=== PATIENT | female | born 1960 | race African-American/Black ===

== ENCOUNTER 2018-04-10 11:12 | Inpatient (IN) | payer OTHER ==
[2018-04-10] MEDS ORDERED: Albuterol Sulfate 2.5 mg/0.5 ml Neb ONE ×4 (11:17→11:54)
[2018-04-10 11:40] LABS: Hemoglobin 14.6 g/dL (12.0-16.0); Mean Corpuscular HGB CONC 34.5 g/dL (32.0-36.0); Mean Corpuscular Hemoglobin 33.1 pg (27.0-31.0); Mean Corpuscular Volume 96.1 fL (78.0-98.0); Mean Platelet Volume 8.2 fL (7.4-10.4); Platelet Count 273 thou/uL (130-400); RBC Distribution Width 12.4 % (11.5-14.5); Red Blood Cell (RBC) Count 4.41 mill/uL (4.20-5.40); White Blood Cell (WBC) Count 7.2 thou/uL (4.8-10.8)
[2018-04-10 11:51] LABS: Actual Bicarbonate (HCO3a) 19.5 mEq/L (22-28); CO2 Tension 47.3 mmHg (35.0-45.0); O2 Tension (PaO2) 143.5 mmHg (80.0-100.0); pH, Arterial 7.23 (7.35-7.45)
[2018-04-10 11:52] LABS: Analyzer IN Cardio ER; Calcium, Ionized 1.18 mmol/L (1.12-1.30); Carboxyhemoglobin (COHb) 1.1 gm% (0.0-3.0); Hemoglobin (Hb) 15.3 g/dL (12.0-16.0); Potassium - ABG Lab 3.9 mmol/L (3.70-5.30); Puncture Site LR
[2018-04-10 11:53] LABS: ALV-art Gradient 118.225 (0-20)
[2018-04-10 11:58] LABS: ALT (SGPT) 29 U/L (8-55); AST (SGOT) 48 U/L (5-34); Albumin 4.2 g/dL (3.5-5.0); Alkaline Phosphatase 62 U/L (40-150); Anion Gap 20 mmol/L (10-20); BUN (Urea Nitrogen) 10 mg/dL (9.8-20.1); Bilirubin, Total 0.4 mg/dL (0.2-1.2); CK (CPK) 245 U/L (29-168); Calc. Creatinine Clearance 0 mL/min (70-130); Calcium 8.8 mg/dL (7.8-10.44); Carbon Dioxide 16 mmol/L (22-29); Chloride 103 mmol/L (98-107); Estimated GFR-MDRD 54; Globulin 2.4 g/dL (2.4-3.5); Glucose 391 mg/dL (70-105); Potassium 4.3 mmol/L (3.5-5.1); Protein, Total 6.6 g/dL (6.0-8.3); Sodium 135 mmol/L (136-145)
[2018-04-10 12:01] LABS: Eosinophils 4 % (0-10); Lymphocytes 57 % (21-51); MDiff Complete? YES; Monocytes 6 % (0-10); Neutrophil 21 % (42-75); PLT Morphology Comment Appears Adequate; RBC Morphology Normal; Reactive Lymphocytes 10 % (0-10)
[2018-04-10 12:03] LABS: CKMB 4.5 ng/mL (0-6.6); Troponin I Less than 0.010 ng/mL (< 0.028)
--- NOTE | 2018-04-10 12:03 | RAD ---
PORTABLE UPRIGHT CHEST RADIOGRAPH: DATE: 04/10/18. COMPARISON: 04/14/16. HISTORY: Difficulty breathing. FINDINGS: There is no pneumothorax, pleural fluid, focal consolidation, or alveolar edema. Heart and mediastin al contours are stable. There is mild interstitial prominence and pulmonary hyperinflation suggesting air trapping. IMPRESSION: Interstitial prominence and pulmonary hyperinflation. Question a history of chronic obstructive pulm onary disease. No focal consolidation or alveolar edema. POS: [facility]
[2018-04-10] MEDS ORDERED: Dextrose 5% in Water 1,000 ML IV PRN (13:41)
[2018-04-10] MEDS ORDERED: HumaLOG 300 UNITS/3 ML VIAL SC PRN (13:41)
[2018-04-10] MEDS ORDERED: Dextrose 50% Abboject 50 ML SYRINGE SLOW IVP PRN (13:41)
[2018-04-10] MEDS ORDERED: Guaifenesin DM 100-10/5 ML UDCUP PO PRN (13:41)
--- NOTE | 2018-04-10 16:14 | HP ---
REASON FOR ADMISSION: COPD exacerbation, acute respiratory failure with hypoxia. HISTORY OF PRESENT ILLNESS: The patient gives history of waking up around 4 in the morning with shor tness of breath. This progressively worsened rapidly. She also mentioned that her right chest hurts and this is not something new. It has been there for the last one year. She has cough with expecto ration of white phlegm. The patient was also wheezing. When EMS arrived, her saturations were in th e 70% and that put her on CPAP and brought her to the emergency room here. Here in the ER, she was e valuated and he is being placed on BiPAP. She has received a total of 6 nebulizers. Two grams of ma gnesium subcu epinephrine despite which patient is still requiring BiPAP. No fever at home. No comp laints of myalgias. No exposure to upper respiratory viral infections in the family. Patient normal ly uses nebulizers 1-2 times a day and every 2-3 nights or so. She wakes up to use a nebulizer. She has known history of COPD and asthma. The patient follows up with a die baker at [facility] which she cannot name. The patient is due for mammogram and is able to fill the paperwork for the s darryl. PAST MEDICAL AND SURGICAL HISTORY: History of COPD, asthma, diabetes mellitus type 2, hypertension, dyslipidemia, left total knee replacement, left breast mass removed, cholecystectomy. She has prior history of being intubated for COPD/asthma flareup in 2011. CURRENT MEDICATIONS: Patient is on metformin 1000 mg twice daily, sertraline 50 mg daily, glyburide 10 mg daily, spironolactone 25 mg daily, Singulair 10 mg daily, aspirin 81 mg daily, cetirizine 10 mg daily, albuterol nebulizer q.6 hourly p.r.n. The patient took 1 dose of [address] [facility]. ALLERGIES: CODEINE and LATEX. PERSONAL HISTORY: Quit smoking 6-8 months back, prior to which has smoked half pack a day for nearly 43 years. Drinks two glasses of Wendy on the weekends. No history of drug abuse. She lives wi th her son. FAMILY HISTORY: Mother is living and has history of coronary artery disease and asthma. Father in his 40s likely from [place] which she does not know for sure. CODE STATUS: FULL. Power of real estate associate attorney is her son, Mr. Andrea. REVIEW OF SYSTEMS: The following complete review of systems was negative, unless otherwise mentioned in the HPI or below: Constitutional: Weight loss or gain, ability to conduct usual activities. Sk in: Rash, itching. Eyes: Double vision, pain. ENT/Mouth: Nose bleeding, neck stiffness, pain, te nderness. Cardiovascular: Palpitations, dyspnea on exertion, orthopnea. Respiratory: Shortness of breath, wheezing, cough, hemoptysis, fever or night sweats. Gastrointestinal: Poor appetite, abdom inal pain, heartburn, nausea, vomiting, constipation, or diarrhea. Genitourinary: Urgency, frequenc y, dysuria, nocturia. Musculoskeletal: Pain, swelling. Neurologic/Psychiatric: Anxiety, depressio n. Allergy/Immunologic: Skin rash, bleeding tendency. PHYSICAL EXAMINATION: GENERAL: The patient is a 58-year-old female who is currently in moderate distress from respiratory failure and is currently on BiPAP. VITAL SIGNS: Blood pressure 130/98, pulse 120 per minute, respiratory rate 26 per minute, temperatur e 97.9 degrees Fahrenheit, saturating 100% on BiPAP. NECK: Supple, no elevated JVD. HEENT: Extraocular muscles intact. Pupils reacting to light. Oral cavity mucous membranes are dry. No exudates or congestion. CARDIOVASCULAR: S1, S2 heard. Irregular, tachycardic, no murmur. RESPIRATORY: Air entry 1+ bilateral. Scattered wheezes plus bilaterally. ABDOMEN: Soft, bowel sounds heard. No tenderness, rigidity or guarding. EXTREMITIES: No peripheral edema or calf tenderness. VASCULAR SYSTEM: Peripheral pulses 1+ bilateral, no ischemic ulcerations or gangrene. CENTRAL NERVOUS SYSTEM: No gross focal deficits noted. Patient is alert, awake, oriented well. PSYCHIATRIC SYSTEM: The patient's mood is a bit anxious, otherwise no hallucinations or delusions. LABORATORY AND X-RAY FINDINGS: White count of 7.2, H&H 14 and 42, platelet count 273 with 21% neutro phils and 57% lymphocytes. Patient has 10% reactive lymphocytes. ABG done shows a pH of 7.23, PCO2 47, pO2 143, bicarb on the blood gas is 19. Sodium 135, bicarbonate is 16 with serum BUN 10, creatin ine 1.24, serum glucose is 391, AST 48. CK level is 245. One set of cardiac enzymes are negative. Chest x-ray done shows no acute infiltrate, findings suggestive of COPD. EKG shows sinus tachycardia with nonspecific ST-T wave changes. CLINICAL IMPRESSION AND PLAN: The patient will be admitted to [facility] for acute respiratory failure wit h hypoxia, acute on chronic obstructive pulmonary disease exacerbation. She is currently saturating well on BiPAP and will continue same for now. She also has prior history of being intubated in 2011. The patient appears to have persistent chronic obstructive pulmonary disease with current flareup. She will be on Levaquin empirically and will continue her on Solu-Medrol 40 mg IV q.6 hourly along brenna Ruffin. She will be gently hydrated with 70 mL per hour of normal saline. We will continue her diabetic medications which might get which might worsen with current steroids. We will consult Dr. Joe for Pulmonology. A viral PCR will be obtained as well.
[2018-04-10 17:02] VITALS: BMI 27.1
--- NOTE | 2018-04-10 18:01 | CON ---
DATE OF SERVICE: 04/10/2018 CONSULTING PHYSICIAN: Lena Hernandez M.D. REASON FOR CONSULTATION: COPD exacerbation, respiratory failure. HISTORY OF PRESENT ILLNESS: The patient is a 58-year-old female who has previously been seen by Dr. Mckoy in our practice one in the hospital. She ordinarily gets care from a motion picture scene builder in [place]. She presented to the hospital today with 1 day history of increasing shortness of breath. She was started on BiPAP in the emergency room and has subsequently improved to the point where I was able take her off BiPAP while in the emergency room. The patient ordinarily takes oxygen as needed at home. She is smoking about one half pack of cigarettes per day. She has had several episodes in the past where she required noninvasive ventilation. She has also been endotracheally intubated in t he past. PAST MEDICAL HISTORY: 1. Chronic obstructive pulmonary disease. 2. Diabetes mellitus type 2. 3. Depression. 4. Hyperlipidemia. 5. Hypertension. 6. COPD/asthma. PAST SURGICAL HISTORY: 1. Left mastectomy. 2. Cholecystectomy. 3. Left knee surgery. SOCIAL HISTORY: Smokes one half pack per day, does not consume alcohol, does not use illicit drugs. ALLERGIES: CODEINE and LATEX. MEDICATIONS PRIOR TO ADMISSION: Metformin 1000 mg twice daily, sertraline 50 mg daily, glyburide 5 m g 2 tablets daily, spironolactone 25 mg daily, Singulair 10 mg daily, aspirin 81 mg daily, Zyrtec 10 mg daily, albuterol as needed, prednisone 20 mg once daily. She is also on Advair inhaler. FAMILY MEDICAL HISTORY: Heart disease runs in her family. REVIEW OF SYSTEMS: She complains of right ear pain. She has had no nausea, vomiting hematoche kelly, hematuria, or dysuria. PHYSICAL EXAMINATION: VITAL SIGNS: Temperature 97.9, pulse in the 90s, blood pressure 102/72, O2 sat currently 97% on 2 li ters nasal cannula. GENERAL: The patient is awake and alert and in no distress. She is using no accessory muscles on re spiration. HEENT: Pupils react. Sclerae anicteric. Oropharynx clear, without lesions. NECK: No adenopathy, JVD, or bruits. LUNGS: She has some mild end-expiratory wheezing bilaterally without accessory muscle use. CARDIAC: S1, S2 regular. No audible murmur or gallop. ABDOMEN: Soft, nontender, nondistended. EXTREMITIES: No clubbing, cyanosis, or edema. LABORATORY AND X-RAY FINDINGS: White blood cell count 7.2, hematocrit 42.4, platelet count 273 with 57% lymphocytes, pH was initially 7.23, pCO2 of 47, pO2 of 143. Sodium 135, potassium 4.3, chloride 103, CO2 16, BUN 10, creatinine 1.2, glucose 391. Anion gap is 20. CPK 245. Chest x-ray shows no o bvious mass, effusion or infiltrate. Heart size is normal. ASSESSMENT: 1. Chronic obstructive pulmonary disease with exacerbation. 2. Acute hypercapnic respiratory failure. 3. Tobacco abuse. RECOMMENDATIONS: 1. Would increase the frequency of her nebulization treatments. 2. IV steroids. 3. More aggressive treatment of her blood sugar. 4. Hydration. 5. Empiric antibiotics. I think Levaquin is acceptable. 6. Brovana and Pulmicort nebs. The above encompassed 30 minutes time. Of that time, greater than 50% of the time was spent with the patient and/or the patient's room in the hospital.
[2018-04-10] MEDS: Sodium Chloride 0.9% 1,000 ML IV SCH (18:38)
[2018-04-10] MEDS: HumaLOG 300 UNITS/3 ML VIAL SC PRN (18:51)
[2018-04-10] MEDS: Arformoterol 15 MCG/2 ML NEB NEB SCH (19:28)
[2018-04-10] MEDS: Budesonide 0.5 MG/2 ML NEB INH SCH (19:29)
[2018-04-10] MEDS: Famotidine 20 MG TAB PO SCH (20:42)
[2018-04-10] MEDS: Docusate 100 MG CAP PO SCH (20:42)
[2018-04-10] MEDS: glyBURIDE 5 MG TAB PO SCH (20:42)
[2018-04-10] MEDS: Acetaminophen 325 MG TAB PO PRN (20:42)
[2018-04-11 06:04] LABS: #Lymphocytes 0.6 thou/uL (1.20-3.40); #Monocytes 0.3 thou/uL (0.11-0.59); #Neutrophils 7.3 thou/uL (1.40-6.50); %Basophils 0.1 % (0.0-1.0); %Eosinophils 0.2 % (0.0-10.0); %Monocytes 4.1 % (0.0-10.0); %Neutrophils 88.7 % (42.0-75.0); Hemoglobin 12.7 g/dL (12.0-16.0); Mean Corpuscular HGB CONC 33.7 g/dL (32.0-36.0); Mean Corpuscular Hemoglobin 32.5 pg (27.0-31.0); Mean Corpuscular Volume 96.3 fL (78.0-98.0); Mean Platelet Volume 8.3 fL (7.4-10.4); Platelet Count 191 thou/uL (130-400); RBC Distribution Width 12.3 % (11.5-14.5); Red Blood Cell (RBC) Count 3.92 mill/uL (4.20-5.40); White Blood Cell (WBC) Count 8.2 thou/uL (4.8-10.8)
[2018-04-11 06:12] LABS: Anion Gap 15 mmol/L (10-20); BUN (Urea Nitrogen) 14 mg/dL (9.8-20.1); Calc. Creatinine Clearance 90 mL/min (70-130); Calcium 8.7 mg/dL (7.8-10.44); Carbon Dioxide 18 mmol/L (22-29); Chloride 104 mmol/L (98-107); Estimated GFR-MDRD 75; Glucose 203 mg/dL (70-105); Potassium 3.4 mmol/L (3.5-5.1); Sodium 134 mmol/L (136-145)
[2018-04-11] MEDS: Arformoterol 15 MCG/2 ML NEB NEB SCH ×2 (07:08→18:46)
[2018-04-11] MEDS: Budesonide 0.5 MG/2 ML NEB INH SCH ×2 (07:08→18:47)
[2018-04-11] MEDS: metFORMIN 500 MG TAB PO SCH ×2 (08:48→17:15)
[2018-04-11] MEDS: Enoxaparin Sodium 40 MG/0.4 ML SYRINGE SC SCH (08:48)
[2018-04-11] MEDS: Docusate 100 MG CAP PO SCH ×2 (08:48→21:19)
[2018-04-11] MEDS: Loratadine 10 MG TAB PO SCH (08:49)
[2018-04-11] MEDS: Famotidine 20 MG TAB PO SCH ×2 (08:49→21:19)
[2018-04-11] MEDS: Montelukast Sodium 10 mg Tablet PO SCH (08:49)
[2018-04-11] MEDS: glyBURIDE 5 MG TAB PO SCH ×2 (08:49→21:20)
[2018-04-11] MEDS: Multivit, Therapeutic 1 TAB PO SCH (08:50)
[2018-04-11] MEDS: HumaLOG 300 UNITS/3 ML VIAL SC PRN ×3 (08:51→17:21)
[2018-04-11] MEDS: Acetaminophen 325 MG TAB PO PRN (08:51)
[2018-04-11] MEDS ORDERED: Aspirin 325 MG TAB PO SCH (09:00)
[2018-04-11] MEDS ORDERED: Cetirizine HCl 10 MG TAB PO SCH (09:00)
[2018-04-11] MEDS: Sodium Chloride 0.9% 1,000 ML IV SCH (09:09)
--- NOTE | 2018-04-11 13:52 | PDOC.PN ---
- Subjective Encounter Start Date: 04/11/18 Encounter Start Time: 11:40 Subjective: breathing better, is talking in full sentences this am - Objective Resuscitation Status: Resuscitation Status FULL:Full Resuscitation MAR Reviewed: Yes Vital Signs & Weight: Vital Signs (12 hours) Temp Pulse Resp BP Pulse Ox 04/11/18 11:20 98.3 F 82 20 121/68 97 04/11/18 10:13 80 12 04/11/18 08:00 96.0 F L 84 18 131/61 98 04/11/18 07:09 80 12 04/11/18 04:36 98 04/11/18 03:51 98 04/11/18 03:15 98.2 F 80 15 124/64 99 Weight Weight 192 lb 1 oz I&O: 04/10/18 04/11/18 04/12/18 06:59 06:59 06:59 Intake Total 240 1250 Output Total 400 Balance 240 850 Result Diagrams: 04/11/18 05:10 04/11/18 05:10 Additional Labs: Accuchecks 04/11/18 04/11/18 04/10/18 11:59 05:58 20:39 POC Glucose 174 H 198 H 186 H 04/10/18 17:06 POC Glucose 235 H Phys Exam - Physical Examination HEENT: PERRLA, moist MMs Neck: no JVD, supple Respiratory: no rales mild wheezes present b/l Cardiovascular: RRR, no significant murmur Gastrointestinal: soft, non-tender, positive bowel sounds Musculoskeletal: no edema, pulses present Neurological: non-focal, moves all 4 limbs Psychiatric: normal affect, A&O x 3 Dx/Plan (1) COPD exacerbation Code(s): J44.1 - CHRONIC OBSTRUCTIVE PULMONARY DISEASE W (ACUTE) EXACERBATION Status: Acute (2) H/O extrinsic asthma Code(s): Z87.09 - PERSONAL HISTORY OF OTHER DISEASES OF THE RESPIRATORY SYSTEM Status: Chronic (3) HTN (hypertension) Code(s): I10 - ESSENTIAL (PRIMARY) HYPERTENSION Status: Chronic Qualifiers: Hypertension type: essential hypertension Qualified Code(s): I10 - Essential (primary) hypertension (4) DM type 2 (diabetes mellitus, type 2) Status: Chronic Qualifiers: Diabetes mellitus dedicated intermodal truck driver insulin use: without dedicated intermodal truck driver use Diabetes mellitus complication status: with unspecified complications Qualified Code(s) : E11.8 - Type 2 diabetes mellitus with unspecified complications (5) Acute respiratory failure with hypercapnia Code(s): J96.02 - ACUTE RESPIRATORY FAILURE WITH HYPERCAPNIA Status: Resolved - Plan prednisone, nebs, levaquin -: continue metformin and glyburide -: to ambulate as tolerated -: dc plan in am -: tx to medical floor * . Review of Systems - Medications/Allergies Allergies/Adverse Reactions: Allergies Allergy/AdvReac Type Severity Reaction Status Date / Time codeine Allergy Verified 05/28/15 12:39 latex Allergy Rash Verified 05/28/15 12:39 Medications: Current Medications Acetaminophen (Tylenol) 650 mg PO Q4H PRN PRN Reason: Headache/Fever or Pain Last Admin: 04/11/18 08:51 Dose: 650 mg Albuterol/Ipratropium (Duoneb) 3 ml NEB [id number] [facility] Last Admin: 04/11/18 10:13 Dose: 3 ml Arformoterol Tartrate (Brovana) 15 mcg NEB BID-RT [facility] Last Admin: 04/11/18 07:08 Dose: 15 mcg Aspirin (Aspirin Chewable) 81 mg PO DAILY [facility] Last Admin: 04/11/18 09:50 Dose: 81 mg Budesonide (Pulmicort Neb Solution) 0.5 mg INH BID-RT [facility] Last Admin: 04/11/18 07:08 Dose: 0.5 mg Dextrose/Water (Dextrose 50%) 25 gm SLOW IVP PRN PRN PRN Reason: Hypoglycemia Docusate Sodium (Colace) 100 mg PO BID [facility] Last Admin: 04/11/18 08:48 Dose: 100 mg Enoxaparin Sodium (Lovenox) 40 mg SC 09 [facility] Last Admin: 04/11/18 08:48 Dose: 40 mg Famotidine (Pepcid) 20 mg PO BID [facility] Last Admin: 04/11/18 08:49 Dose: 20 mg Glucagon (Glucagon) 1 mg IM PRN PRN PRN Reason: Hypoglycemia Glyburide (Diabeta) 5 mg PO BID [facility] Last Admin: 04/11/18 08:49 Dose: 5 mg Guaifenesin/Dextromethorphan (Robitussin Dm) 15 ml PO Q4H PRN PRN Reason: Cough Dextrose/Water (D5w) 1,000 mls @ 0 mls/hr IV .Q0M PRN PRN Reason: Hypoglycemia Levofloxacin 750 mg/ Device 150 mls @ 100 mls/hr IVPB 1400 [facility] Last Admin: 04/11/18 13:35 Dose: 150 mls Sodium Chloride (Normal Saline 0.9%) 1,000 mls @ 70 mls/hr IV .[id number] [facility] Last Admin: 04/11/18 09:09 Dose: 1,000 mls Insulin Human Lispro (Humalog) 0 units SC .AGGRESSIVE SLIDING PRN PRN Reason: Aggressive Correctional Scale Last Admin: 04/11/18 13:34 Dose: 3 unit Insulin Human Lispro (Humalog) 0 units SC .BEDTIME SLIDING SC PRN PRN Reason: Bedtime Correctional Scale Loratadine (Claritin) 10 mg PO DAILY [facility] Last Admin: 04/11/18 08:49 Dose: 10 mg Metformin HCl (Glucophage) 1,000 mg PO BID[facility] Last Admin: 04/11/18 08:48 Dose: 1,000 mg Methylprednisolone Sodium Succinate (Solu-Medrol) 40 mg IVP 0300,0900,1500, 2100 [facility] Last Admin: 04/11/18 08:49 Dose: 40 mg Montelukast Sodium (Singulair) 10 mg PO DAILY [facility] Last Admin: 04/11/18 08:49 Dose: 10 mg Multivitamins (Theragran) 1 tab PO DAILY [facility] Last Admin: 04/11/18 08:50 Dose: 1 tab Sertraline HCl (Zoloft) 50 mg PO DAILY [facility] Last Admin: 04/11/18 08:50 Dose: 50 mg
[2018-04-11] MEDS ORDERED: predniSONE 20 MG TAB PO SCH (14:30)
--- NOTE | 2018-04-11 18:57 | PRG ---
DATE OF SERVICE: 04/11/2018 SUBJECTIVE: Lauryn Sawyer says she is feeling better. OBJECTIVE: VITAL SIGNS: She is afebrile, heart rate 79, respiratory rate 18, oximetry is 97, blood pressure 114 /61. LUNGS: Clear. HEART: Regular rhythm. ABDOMEN: Soft. EXTREMITIES: Without asymmetry or edema. NEUROLOGIC: Grossly nonfocal. IMPRESSION: Chronic obstructive pulmonary disease exacerbation versus status asthmaticus. I h er as an outpatient and will have pulmonary function test on her at baseline. I will be happy to follow with the other physicians caring for her.
[2018-04-12] MEDS: HumaLOG 300 UNITS/3 ML VIAL SC PRN (05:59)
[2018-04-12] MEDS ORDERED: predniSONE 20 MG TAB PO SCH (08:00)
[2018-04-12] MEDS: Loratadine 10 MG TAB PO SCH (10:31)
[2018-04-12] MEDS: Famotidine 20 MG TAB PO SCH (10:31)
[2018-04-12] MEDS: Multivit, Therapeutic 1 TAB PO SCH (10:31)
[2018-04-12] MEDS: glyBURIDE 5 MG TAB PO SCH (10:32)
[2018-04-12] MEDS: Docusate 100 MG CAP PO SCH (10:32)
[2018-04-12] MEDS: Montelukast Sodium 10 mg Tablet PO SCH (10:32)
[2018-04-12] MEDS: metFORMIN 500 MG TAB PO SCH (10:32)
[2018-04-12] MEDS: Enoxaparin Sodium 40 MG/0.4 ML SYRINGE SC SCH (10:35)
[2018-04-12] MEDS: Arformoterol 15 MCG/2 ML NEB NEB SCH (10:37)
[2018-04-12] MEDS: Budesonide 0.5 MG/2 ML NEB INH SCH (10:38)
[2018-04-12 13:27] VITALS: BP 125/68; TEMP 98.2
--- NOTE | 2018-04-12 15:49 | PDOC.PN ---
- Subjective Encounter Start Date: 04/12/18 Encounter Start Time: 08:30 Subjective: breathing better -: is amb well - Objective Resuscitation Status: Resuscitation Status FULL:Full Resuscitation MAR Reviewed: Yes Vital Signs & Weight: Vital Signs (12 hours) Temp Pulse Resp BP Pulse Ox 04/12/18 08:00 98.2 F 78 18 125/68 95 04/12/18 04:00 97.8 F 76 20 127/74 96 Weight Weight 192 lb 1 oz I&O: 04/11/18 04/12/18 04/13/18 06:59 06:59 06:59 Intake Total 240 2210 Output Total 400 Balance 240 1810 Result Diagrams: 04/11/18 05:10 04/11/18 05:10 Additional Labs: Accuchecks 04/12/18 04/11/18 04/11/18 05:13 20:30 16:33 POC Glucose 164 H 182 H 162 H Phys Exam - Physical Examination HEENT: PERRLA, moist MMs Neck: no JVD, supple Respiratory: no wheezing, no rales Cardiovascular: RRR, no significant murmur Gastrointestinal: soft, non-tender, positive bowel sounds Musculoskeletal: no edema, pulses present Neurological: non-focal, moves all 4 limbs Psychiatric: normal affect, A&O x 3 Dx/Plan (1) COPD exacerbation Code(s): J44.1 - CHRONIC OBSTRUCTIVE PULMONARY DISEASE W (ACUTE) EXACERBATION Status: Acute (2) H/O extrinsic asthma Code(s): Z87.09 - PERSONAL HISTORY OF OTHER DISEASES OF THE RESPIRATORY SYSTEM Status: Chronic (3) HTN (hypertension) Code(s): I10 - ESSENTIAL (PRIMARY) HYPERTENSION Status: Chronic Qualifiers: Hypertension type: essential hypertension Qualified Code(s): I10 - Essential (primary) hypertension (4) DM type 2 (diabetes mellitus, type 2) Status: Chronic Qualifiers: Diabetes mellitus terminologist insulin use: without residential use Diabetes mellitus complication status: with unspecified complications Qualified Code(s) : E11.8 - Type 2 diabetes mellitus with unspecified complications (5) Acute respiratory failure with hypercapnia Code(s): J96.02 - ACUTE RESPIRATORY FAILURE WITH HYPERCAPNIA Status: Resolved - Plan hemostable -: steroids, levaquin -: dc pt home * . Review of Systems - Medications/Allergies Allergies/Adverse Reactions: Allergies Allergy/AdvReac Type Severity Reaction Status Date / Time codeine Allergy Verified 05/28/15 12:39 latex Allergy Rash Verified 05/28/15 12:39
== END 2018-04-12 10:53 | disposition home or self-care (01) | DRG 189 ==
LOC: ERS 11:12 → 2NO 13:00 → T4-A 04-11 11:20
PROVIDERS: ADMIT Internal Medicine; ATTEND Internal Medicine
DX: J96.01 Acute respiratory failure with hypoxia (principal); J44.1 Chronic obstructive pulmonary disease with (acute) exacerbation; I10 Essential (primary) hypertension; E11.9 Type 2 diabetes mellitus without complications; J96.02 Acute respiratory failure with hypercapnia; Z91.81 History of falling; E78.5 Hyperlipidemia, unspecified; Z96.659 Presence of unspecified artificial knee joint; Z90.49 Acquired absence of other specified parts of digestive tract; Z87.891 Personal history of nicotine dependence; F32.9 Major depressive disorder, single episode, unspecified
CPT/HCPCS: 36415; 36416; 71045; 80048; 80053; 82553; 82805; 84484; 85025; 87040; 87070; 87205; 87633; 93005; 94640; 94660; 94760; 96360; J1650; J1956; J2920; J7506; J7611; J7620; J7626

== ENCOUNTER 2019-04-25 06:14 | Day surgery (SDC) | payer OTHER ==
[2019-04-24 15:53] VITALS: BMI 25.0
[2019-04-25] MEDS ORDERED: Bupivacaine/Epinephrine 0.25% 30 ML VIAL ONE ×2 (06:39→08:23)
[2019-04-25] MEDS ORDERED: Fentanyl 100 MCG/2 ML VIAL ONE (06:42)
[2019-04-25] MEDS ORDERED: Lidocaine 2% Jelly 5 ML TUBE ONE (06:42)
[2019-04-25] MEDS ORDERED: Ketorolac Tromethamine 30 MG/ML VIAL ONE (07:00)
[2019-04-25 07:16] LABS: Mean Corpuscular HGB CONC 34.9 g/dL (32.0-36.0); Mean Corpuscular Hemoglobin 34.3 pg (27.0-31.0); Mean Corpuscular Volume 98.4 fL (78.0-98.0); Mean Platelet Volume 7.6 fL (7.4-10.4); Platelet Count 226 thou/uL (130-400); Red Blood Cell (RBC) Count 4.36 mill/uL (4.20-5.40); White Blood Cell (WBC) Count 5.1 thou/uL (4.8-10.8)
[2019-04-25 07:23] LABS: Chloride 102 mmol/L (98-107); Potassium 3.9 mmol/L (3.5-5.1); Sodium 136 mmol/L (136-145)
[2019-04-25] MEDS ORDERED: Albuterol Sulfate HFA (OR ONLY) ONE (07:23)
[2019-04-25 07:24] LABS: Calcium 10.4 mg/dL (7.8-10.44); Glucose 129 mg/dL (70-105)
[2019-04-25 07:26] LABS: Anion Gap 15 mmol/L (10-20); Carbon Dioxide 23 mmol/L (22-29)
[2019-04-25 07:28] LABS: BUN (Urea Nitrogen) 11 mg/dL (9.8-20.1); Calc. Creatinine Clearance 66 mL/min (70-130); Estimated GFR-MDRD 59
[2019-04-25 08:32] LABS: Band 3 % (5-11); Eosinophils 1 % (0-10); Lymphocytes 43 % (21-51); MDiff Complete? YES; Monocytes 7 % (0-10); Neutrophil 46 % (42-75); RBC Morphology Normal
--- NOTE | 2019-04-25 11:36 | OP ---
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 PROCEDURE PERFORMED: Excision of right thigh and left arm intramuscular lipomas. ANESTHESIA: General endotracheal per Anna Biggs CRNA. INDICATIONS: The patient is a 59-year-old black female. She presents with enlarging and symptomatic soft tissue masses within the right posterior thigh and the left upper arm. Evaluation revealed that these are intramuscular lipomas,and I recommended removing these under anesthesia in the operating room. Because of the location, I felt this is needed to be done in the prone position. DESCRIPTION OF PROCEDURE: Informed consent was obtained. The patient was taken to the operating room, where general endotracheal anesthesia was obtained with the patient in supine position. She was then rolled over into prone position. The areas of the lipomas were marked and the right posterior thigh and left upper arm were prepped with ChloraPrep and draped in sterile fashion. Attention was turned first to the right thigh. A longitudinal incision was created about 7 cm in length. Dissection was carried through skin and subcutaneous tissue. The muscular fascia was incised, and underlying this, the muscle belly was visualized. The lipoma was easily palpable within this. The outer muscular tissue was incised and the muscle fibers were revealing the lipoma. This was fairly adherent to the surrounding tissues in all directions. It was carefully dissected from all muscular tissue. The proximal and distal extent were identified and divided with electrocautery and it was removed intact in its entirety from within the muscle. Meticulous hemostasis was obtained. The muscle belly was clean was closed with a couple of interrupted sutures of 2-0 Vicryl and the muscular fascia was closed with interrupted sutures of 2-0 Vicryl. The remainder of the wound was closed in layers with 3-0 Vicryl and 4-0 Monocryl and Dermabond was placed externally. Attention was then turned to the left arm. The lipoma was again easily palpable. Local anesthetic was infiltrated and a transverse incision was created across the palpable mass along the long axis of the soft tissue mass. Dissection was carried down to the fascia. This was incised, and again, the lipoma was within the muscle belly of the deltoid. The muscle fibers were , and the lipoma was carefully dissected circumferentially and removed intact. This measured 3.5 cm. Meticulous hemostasis was again obtained. The wound was irrigated. It was closed in layers using 2-0 Vicryl to close the muscle belly and the muscular fascia, and 3-0 Vicryl and 4-0 Monocryl to approximate the skin. Dermabond was again placed externally. There were no complications. The patient tolerated the procedure well and was taken to recovery room in stable condition. Job ID: [id number]
== END 2019-04-25 10:50 | disposition home or self-care (01) ==
LOC: SDC 06:14
PROVIDERS: ATTEND Specialist
DX: D17.79 Benign lipomatous neoplasm of other sites (principal); I10 Essential (primary) hypertension; E11.9 Type 2 diabetes mellitus without complications; E78.5 Hyperlipidemia, unspecified; F17.210 Nicotine dependence, cigarettes, uncomplicated; F32.9 Major depressive disorder, single episode, unspecified; J45.909 Unspecified asthma, uncomplicated; Z86.73 Personal history of transient ischemic attack (TIA), and cerebral infarction without residual deficits; Z79.82 Long term (current) use of aspirin; Z79.84 Long term (current) use of oral hypoglycemic drugs; Z79.899 Other long term (current) drug therapy; Z88.5 Allergy status to narcotic agent; Z91.040 Latex allergy status
CPT/HCPCS: 36415; 80048; 85025; 88304; 93005; 93010; J0131; J0690; J1885; J3010; J7620

== ENCOUNTER 2019-05-17 13:05 | Outpatient (CLI) | payer OTHER ==
--- NOTE | 2019-05-17 13:26 | RAD ---
XR Chest Pa Lat @ [facility] HISTORY: Dyspnea COMPARISON: 04/10/2018 FINDINGS: The heart size is normal. The lungs are well expanded without focal areas of consolidation, pneumothorax or pleural effusions. There is a small plate of linear atelectasis in the right midlung. There are degenerative changes in the spine.
== END 2019-05-17 13:06 | disposition home or self-care (01) ==
LOC: RAD 13:05
PROVIDERS: ATTEND Internal Medicine Pulmonary Disease
DX: R06.00 Dyspnea, unspecified (principal)
CPT/HCPCS: 71046

== ENCOUNTER 2020-09-30 15:00 | Outpatient (CLI) | payer OTHER ==
[2020-08-26 15:01] LABS: Mean Corpuscular HGB CONC 33.3 G/DL (32.0-36.0); Mean Corpuscular Hemoglobin 31.7 PG (27.0-33.0); Mean Corpuscular Volume 95.3 fl (80.0-100.0); Platelet Count 277 10x3/uL (130-400); RBC Distribution Width 14.1 % (11.5-14.5); Red Blood Cell (RBC) Count 4.73 10x6/uL (3.90-5.20); White Blood Cell (WBC) Count 7.9 10x3/uL (4.5-11.0)
[2020-08-26 15:16] LABS: INR-International Normal Ratio 1.1; Prothrombin Time 11.1 sec (9.5-12.1)
[2020-08-26 15:29] LABS: Anion Gap 17 mmol/L (10-20); BUN (Urea Nitrogen) 13 mg/dL (9.8-20.1); Calc. Creatinine Clearance 0 mL/min (70-130); Calcium 9.6 mg/dL (7.8-10.44); Carbon Dioxide 22 mmol/L (23-31); Chloride 102 mmol/L (98-107); Glucose 192 mg/dL (80-115); Potassium 3.7 mmol/L (3.5-5.1); Sodium 137 mmol/L (136-145)
[2020-08-27 02:54] LABS: SARS-CoV-2 PCR by NAA Not Detected (NotDetected)
[2020-09-30 16:26] LABS: Hemoglobin 14.8 g/dL (12.0-15.5); Mean Corpuscular Hemoglobin 31.8 pg (27.0-33.0); Mean Corpuscular Volume 96.4 fl (81.6-98.3); Mean Platelet Volume 10.9 fl (7.4-10.4); Platelet Count 221 10x3/uL (150-450); RBC Distribution Width 13.4 % (11.5-14.5); Red Blood Cell (RBC) Count 4.66 10x6/uL (3.90-5.03); White Blood Cell (WBC) Count 6.2 10x3/uL (3.5-10.5)
[2020-09-30 16:47] LABS: Anion Gap 21 mmol/L (10-20); BUN (Urea Nitrogen) 13 mg/dL (9.8-20.1); Calc. Creatinine Clearance 0 mL/min (70-130); Carbon Dioxide 21 mmol/L (23-31); Chloride 100 mmol/L (98-107); Glucose 214 mg/dL (80-115); Potassium 3.8 mmol/L (3.5-5.1); Sodium 138 mmol/L (136-145)
[2020-10-01 01:55] LABS: SARS-CoV-2 PCR by NAA Not Detected (NotDetected)
== END 2020-09-30 15:01 | disposition home or self-care (01) ==
LOC: LABBT 15:00
PROVIDERS: ATTEND Internal Medicine Cardiovascular Disease
DX: Z01.812 Encounter for preprocedural laboratory examination (principal); I50.22 Chronic systolic (congestive) heart failure; Z20.822 Contact with and (suspected) exposure to COVID-19
CPT/HCPCS: 80048; 85027; 85610; 87635; U0003; U0005

== ENCOUNTER 2020-10-03 06:06 | Day surgery (SDC) | payer OTHER ==
[2020-10-01 14:13] VITALS: BMI 26.2
[2020-10-03] MEDS ORDERED: Vancomycin HCl 500 MG VIAL ONE (06:15)
[2020-10-03] MEDS ORDERED: Fentanyl 100 MCG/2 ML VIAL ONE (06:29)
[2020-10-03] MEDS ORDERED: Propofol 1,000 MG/100 ML VIAL IV ONE (06:29)
[2020-10-03] MEDS ORDERED: Gentamicin 80 MG/2 ML VIAL ONE (07:30)
[2020-10-03] MEDS ORDERED: CEFAZOLIN 1 GM VIAL ONE (07:30)
[2020-10-03] MEDS ORDERED: Iopamidol 370 76% 50 ML VIAL FS ONE (13:07)
== END 2020-10-03 13:35 | disposition home or self-care (01) ==
LOC: CCL 06:06
PROVIDERS: ATTEND Internal Medicine Cardiovascular Disease
PROC: 0JH608Z Insertion of Defibrillator Generator into Chest Subcutaneous Tissue and Fascia, Open Approach (ICD-10-PCS; principal; 2020-10-03)
PROC: 0JH60FZ Insertion of Subcutaneous Defibrillator Lead into Chest Subcutaneous Tissue and Fascia, Open Approach (ICD-10-PCS; principal; 2020-10-03)
DX: I11.0 Hypertensive heart disease with heart failure (principal); I50.22 Chronic systolic (congestive) heart failure; I42.8 Other cardiomyopathies; E11.9 Type 2 diabetes mellitus without complications; E78.5 Hyperlipidemia, unspecified; F10.10 Alcohol abuse, uncomplicated; J44.9 Chronic obstructive pulmonary disease, unspecified; I25.10 Atherosclerotic heart disease of native coronary artery without angina pectoris; F17.200 Nicotine dependence, unspecified, uncomplicated; Z79.82 Long term (current) use of aspirin; Z79.84 Long term (current) use of oral hypoglycemic drugs; Z79.899 Other long term (current) drug therapy; Z88.5 Allergy status to narcotic agent; Z91.040 Latex allergy status; Z96.659 Presence of unspecified artificial knee joint
CPT/HCPCS: 33249; 36005; 71045; 75820; 93005; J0690; J1580; J2704; J3010; J3370; Q9967